=== PATIENT | male | born 1980 | race Caucasian/White ===

== ENCOUNTER 2016-12-04 10:00 | Inpatient (IN) | payer OTHER ==
--- NOTE | ~2016-12-04 | PA ---
Unit #: [id number] #: [id number] Patient: MAIK BELTRAN [id number] [facility] [address] [place] [address] [id number] MR#: [id number] NAME: MAIK BELTRAN ROOM: P211 Age: 36 Sex: M Admission Date: 12/04/2016 : 1980 Date of Assessment: 12/05/2016 Attending Physician: Randolph Bearden M.D. Admitting Physician: Randolph Bearden M.D. Primary Care Physician: Generic Doctor Not In System PSYCHIATRIC ASSESSMENT IDENTIFYING INFORMATION The patient is a 36-year-old white male admitted with a history of alcohol dependence and suicidal ideation. CHIEF COMPLAINT Tried to kill myself. INFORMANT Patient, reliability is good. HISTORY OF PRESENT ILLNESS The patient is a 36-year-old white male admitted in transfer from [facility] where he had been taken after roommates had found him with a rope around his neck. The patient was intoxicated and states that he has little recollection of this event. The patient was also drinking rubbing alcohol at the time. The patient reports previous treatment at [facility] in [facility] and states that he maintained sobriety for eight months after his treatment there this occurred approximately four months ago. The patient is currently unemployed. He is and has significant financial stressors. The patient reports that he did not write a suicide note and reports little recollection of events leading to hospitalization secondary to his degree of intoxication. The patient denies recent changes in sleep or appetite but does report sad mood. He is currently denying suicidal ideation. He reports occasion use of substances other than alcohol specifically marijuana. PAST PSYCHIATRIC HISTORY As above. PAST MEDICAL HISTORY Noncontributory MEDICATIONS None. ALLERGIES None. FAMILY HISTORY The patient reports an extensive family history of substance abuse. SOCIAL HISTORY Unit #: [id number] #: [id number] Patient: MAIK BELTRAN The patient lives with a roommate. 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 He does not quantify his use of alcohol during today's interview. He is a smoker. MENTAL STATUS EXAMINATION At this time reveals the patient to be a well-developed, well-nourished heavily tattooed white male, appearing his stated age. He is in no apparent physical distress at the time of examination. He is awake, alert, and oriented in all spheres. His mood is dysphoric. His affect constricted. Speech is generally relevant and coherent. There are no gross deficits in memory or cognition noted. Intelligence is judged to be in the average range based on fund of knowledge. The patient is cooperative throughout the interview. He is currently denying suicidal or homicidal ideation or psychotic features. Judgment and insight appear to be intact. ASSETS AND LIABILITIES ASSETS: Motivation for change. LIABILITIES: Lack of resources. ADMITTING DIAGNOSES 1. Alcohol use disorder 2. Dysthymic disorder TREATMENT PLAN The patient remains hospitalization for safety and stabilization. A routine detoxification protocol for alcohol has been initiated. Suicidal precautions remain in place and I will start the patient on citalopram 20 mg daily as he is endorsing symptoms consistent with a dysthymic or depressive disorder. ESTIMATED LENGTH OF STAY Five to seven days with followup to take place through the auspices of community mental health resources. Dictated by... Randolph Bearden M.D. BRUNA/evan TD: 12/06/2016 01:04 JOB #: [id number] PSYCHIATRIC ASSESSMENT Page 1 of 1 X Randolph Bearden MD X PSYCHIATRIC ASSESSMENT
--- NOTE | ~2016-12-04 | HP ---
Unit #: [id number] #: [id number] Patient: MAIK BELTRAN [id number] [facility] [address] [place] [address] [id number] I MR#: [id number] NAME: MAIK BELTRAN ROOM: [facility] Age: 36 Sex: M Admission Date: 12/04/2016 : 1980 Attending Physician: Randolph Bearden M.D. Admitting Physician: Randolph Bearden M.D. Primary Care Physician: Generic Doctor Not In System HISTORY AND PHYSICAL HISTORY OF PRESENT ILLNESS The patient is a 36-year-old male admitted to [address] [place] [address] on 12/04/2016 for suicidal ideations with an attempt to hang himself and for alcohol abuse. The patient was asleep at the time of consultation despite multiple attempts I was unable to wake him. His history was retrieved from the chart. PAST MEDICAL HISTORY None noted. PAST SURGICAL HISTORY None noted SOCIAL HISTORY The patient recently lost his job. He does live with a roommate. He smokes 1/2 pack of cigarettes daily and drinks a fifth of liquor per day. FAMILY MEDICAL HISTORY Noncontributory. ALLERGIES Augmentin CURRENT MEDICATIONS The patient is not on any home medications. REVIEW OF SYSTEMS Unable to obtain. PHYSICAL EXAM GENERAL: He is awake, alert and oriented in no acute distress. VITAL SIGNS: Temperature 98.6, heart rate 93, respiration 16, blood pressure 116/68. HEIGHT: 5'7". WEIGHT: 165 pounds. Rest of physical exam unable to obtain due to patient being asleep. IMPRESSION 1. Psychiatric admission. 2. Alcohol abuse. RECOMMENDATIONS Psychiatric per psychiatrist. Unit #: [id number] #: [id number] Patient: MAIK BELTRAN MEDICAL: No contraindication to participate in facility activities. MEDICAL PROGNOSIS Good. MEDICAL CONDITION Stable. Dictated by... Kevin Pittman/evan TD: 12/06/2016 03:34 JOB #: [id number] HISTORY AND PHYSICAL Page 1 of 1 X KONRAD LAUREANO APRN X HISTORY AND PHYSICAL
--- NOTE | ~2016-12-04 | DS ---
Unit #: [id number] #: [id number] Patient: MAIK BELTRAN [id number] [facility] [address] [place] [address] [id number] I MR#: [id number] NAME: MAIK BELTRAN [facility]: [facility] Age: 36 Sex: M Admission Date: 12/04/2016 : 1980 Discharge Date: 12/07/2016 Attending Physician: Randolph Bearden M.D. DISCHARGE SUMMARY REASON FOR ADMISSION The patient is a 36-year-old white male, admitted with suicidal ideation and alcohol dependence. HOSPITAL COURSE The patient was admitted to the [address] [place] [address] unit and placed on routine detoxification protocol for alcohol. He was begun on citalopram 20 mg daily to address depressive symptoms. Unfortunately, the patient participated to no significant degree whatsoever within the therapeutic milieu choosing instead to remain in bed on 12/07. DICTATION ENDS HERE Dictated by... Randolph Bearden M.D. CB/beverly TD: 12/07/2016 16:28 JOB #: [id number] DISCHARGE SUMMARY Page 1 of 1 X Randolph Bearden MD X DISCHARGE SUMMARY
--- NOTE | ~2016-12-04 | PN ---
Unit #: [id number] #: [id number] Patient: MAIK BELTRAN [id number] [facility] [address] [place] [address] [id number] I MR#: [id number] NAME: MAIK BELTRAN ROOM: [facility] Age: 36 Sex: M Admission Date: 12/04/2016 : 1980 Attending Physician: Randolph Bearden M.D. Admitting Physician: Ranodlph Bearden M.D. Primary Care Physician: Yovani Doctor Not In System [facility] PROGRESS NOTES DATE 12/06/2016 DISCUSSION The patient is abed sleeping soundly today multiple attempts to arouse him are less unsuccessful. His detox continues uneventfully. Dictated by... Randolph Bearden M.D. CB/evan TD: 12/07/2016 01:01 JOB #: [id number] [facility] PROGRESS NOTES Page 1 of 1 X Randolph Bearden MD X PROGRESS NOTE
== END 2016-12-07 14:05 | disposition home or self-care (01) | DRG 897 ==
LOC: P2S 13:12
PROC: HZ2ZZZZ Detoxification Services for Substance Abuse Treatment (ICD-10-PCS; principal; 2016-12-04)
DX: F10.20 Alcohol dependence, uncomplicated (principal); R45.851 Suicidal ideations; F34.1 Dysthymic disorder; F17.210 Nicotine dependence, cigarettes, uncomplicated
CPT/HCPCS: 86592